=== PATIENT | male | born 1965 | race Caucasian/White ===

== ENCOUNTER 2021-03-16 16:44 | Emergency (ER) | payer OTHER ==
[~2021-03-16] VITALS: Ht 177.8 cm; Wt 74.4 kg
[~2021-03-16 16:44] MED LIST: ACETAMINOPHEN325 M1 PO; BACLOFEN10 MG PO; CYCLOBENZAPRINE10 MG PO; CYMBALTA30 MG PO; EXCEDRIN EXTRA1 EAC1 PO; FIORICET 50-301 EACH PO; FIORINAL 50-321 EACH PO; IBUPROFEN800 MG PO; LISINOPRIL-HCT1 EACH PO; MOBIC7.5 MG PO; NORCO 5-325 TA1 EACH PO; NORCO 7.5-3251 EACH PO; OXYCODONE-ACET1 EAC1 PO; PERCOCET 5-3251 EACH PO; ROBAXIN500 MG PO; TENORMIN50 MG PO; TRAMADOL HCL50 MG PO; ZITHROMAX250 MG PO
[2021-03-16] MEDS ORDERED: NORVASC10 MG PO (19:42)
[2021-03-16] MEDS ORDERED: FLUOXETINE HCL20 M1 PO (19:43)
[2021-03-16] MEDS ORDERED: HYDROXYZINE HCL25 MG PO (19:44)
[2021-03-16] MEDS ORDERED: LISINOPRIL20 MG PO (19:44)
== END 2021-03-16 22:42 | disposition home or self-care (01) ==
LOC: ED 16:44
DX: K80.20 Calculus of gallbladder without cholecystitis without obstruction (principal); G43.909 Migraine, unspecified, not intractable, without status migrainosus; I10 Essential (primary) hypertension; F17.200 Nicotine dependence, unspecified, uncomplicated; Z88.8 Allergy status to other drugs, medicaments and biological substances; Z79.899 Other long term (current) drug therapy
CPT/HCPCS: 76705; 80053; 81001; 83690; 85025; 99284-25